=== PATIENT | female | born 1980 | race Caucasian/White ===

== ENCOUNTER 2022-07-27 05:51 | Inpatient (IN) ==
[2022-07-27] MEDS ORDERED: Buffered Lidocaine 1% SYRIN 1 ml INTRADERM ONE (06:00)
[2022-07-27] MEDS ORDERED: Sodium Citrate/Citric Acid LIQ 15 ML UDC PO ONE (06:00)
[2022-07-27] MEDS ORDERED: ceFOXitin 2 GM IVPREMIX 2 GM/50 ML BAG IVPB ONE (06:00)
[2022-07-27] MEDS ORDERED: Lactated Ringers 1000 ml BAG 1,000 ML IV ONE ×2 (06:00→18:36)
[2022-07-27 06:52] LABS: ABS Basophils 0.1 10^3/uL (0.0-0.1); ABS Lymphocytes 1.7 10^3/uL (1.0-4.8); ABS Monocytes 0.6 10^3/uL (0.0-0.9); ABS Neutrophils 5.5 10^3/uL (1.5-7.6); ABS Nucleated RBC 0.01 10^3/ul; Eosinophil % 0.1 %; Hematocrit 28.8 % (35-45); Hemoglobin 9.1 g/dL (11.5-14.3); Lymphocyte % 21.8 %; Mean Corpuscular Hemoglobin 22.4 pg (27-33); Mean Corpuscular Hgb Conc 31.4 g/dL (31-36); Mean Corpuscular Volume 71.4 fL (80-97); Mean Platelet Volume 9.8 fL (7.5-11.2); Nucleated Red Blood Cells % 0.2 /100 WBC (0.0-0.4); Platelet Count 283 10^3/uL (150-450); Red Blood Count 4.04 10^6/uL (3.63-4.92); Red Cell Distribution Width 21.4 % (12-17); White Blood Count 7.9 10^3/uL (3.8-11.8)
[2022-07-27] MEDS ORDERED: Lactated Ringers 1000 ml BAG 1,000 ML IV SCH ×2 (07:00→10:00)
[2022-07-27] MEDS ORDERED: Phenylephrine 40 mcg/mL 10mL (400mcg) SYRINGE ONE (07:01)
[2022-07-27] MEDS ORDERED: Dexamethasone IV 4 MG/ML VIAL 1 ml VIAL ONE (07:03)
[2022-07-27] MEDS ORDERED: Tranexamic Acid 1,000 MG in NS 0.9% 50 ML IV ONE (07:35)
[2022-07-27] MEDS ORDERED: Acetaminophen IV 1 GM/100ML 1,000 MG/100 ML BAG IV ONE (08:25)
[2022-07-27] MEDS ORDERED: Oxytocin 10 UNITS/ML 1 ML VIAL ONE (08:26)
[2022-07-27 08:34] LABS: Urine Appearance Cloudy; Urine Bilirubin Negative (Negative); Urine Blood 1+ (Negative); Urine Color Yellow; Urine Glucose Negative (Negative); Urine Ketones Negative (Negative); Urine Nitrite Negative (Negative); Urine Protein 1+(30 mg/dL) (Negative); Urine Specific Gravity 1.014 (1.002-1.030); Urine Urobilinogen Negative (Negative)
[2022-07-27 08:48] LABS: Urine Bacteria Absent (Absent); Urine Red Blood Cell 3+(>10/hpf) (Absent); Urine Renal Epithelial Cells Present (Absent); Urine Squamous Epithelial Cell Present (Absent); Urine White Blood Cell 2+(11-20/hpf) (Absent)
[2022-07-27 08:56] LABS: Urine Benzodiazepine Screen None Detected (None Detect); Urine Cannabinoids Screen None Detected (None Detect); Urine Opiates Screen None Detected (None Detect)
[2022-07-27] MEDS ORDERED: Witch Hazel PAD JAR TOPICAL PRN (09:13)
[2022-07-27] MEDS ORDERED: Glycerin ADULT 2.4 gm SUPP PR PRN (09:13)
[2022-07-27] MEDS ORDERED: Dibucaine 1% OINT 28.35 GM TUBE PR PRN (09:13)
[2022-07-27] MEDS ORDERED: HYDROmorphone 0.5 MG/0.5 ML SYRINGE IV SLOW PU PRN (09:20)
[2022-07-27] MEDS ORDERED: Acetaminophen IV 1 GM/100ML 1,000 MG/100 ML BAG IV PRN ×2 (09:37→17:00)
[2022-07-27] MEDS ORDERED: Metoclopramide 5 MG/ML VIAL (10 mg) IV PRN (09:37)
[2022-07-27] MEDS ORDERED: Naloxone 0.4 mg VIAL 0.4 mg/ml 1 ml VIAL IV PUSH PRN (09:37)
[2022-07-27] MEDS: Oxytocin in LR 20,000 MILLI.UNIT/1,000 ML BAG IV SCH ×2 (12:16→17:27)
[2022-07-27] MEDS ORDERED: Buprenorp/Nalox 8-2 MG FILM SL SCH (19:00)
[2022-07-27 19:48] LABS: Hematocrit 24.7 % (35-45); Hemoglobin 7.8 g/dL (11.5-14.3); Mean Corpuscular Hemoglobin 22.3 pg (27-33); Mean Corpuscular Hgb Conc 31.4 g/dL (31-36); Mean Platelet Volume 9.5 fL (7.5-11.2); Platelet Count 235 10^3/uL (150-450); Red Blood Count 3.49 10^6/uL (3.63-4.92); Red Cell Distribution Width 20.9 % (12-17); White Blood Count 14.4 10^3/uL (3.8-11.8)
[2022-07-27] MEDS: Buprenorp/Nalox 4-1 MG FILM SL SCH (21:19)
[2022-07-27] MEDS: Buprenorp/Nalox 8-2 MG FILM SL SCH (21:21)
[2022-07-28] MEDS: Buprenorp/Nalox 8-2 MG FILM SL SCH ×2 (10:47→22:03)
[2022-07-28] MEDS: CMCS: Lisdexamfetamine 10 mg CAP(NF) PO SCH (11:11)
[2022-07-28] MEDS: Buprenorp/Nalox 4-1 MG FILM SL SCH (22:03)
[2022-07-29] MEDS: Buprenorp/Nalox 8-2 MG FILM SL SCH ×2 (08:25→20:08)
[2022-07-29] MEDS: CMCS: Lisdexamfetamine 10 mg CAP(NF) PO SCH (08:34)
[2022-07-29] MEDS: Buprenorp/Nalox 4-1 MG FILM SL SCH (20:09)
[2022-07-30] MEDS: Buprenorp/Nalox 8-2 MG FILM SL SCH (09:11)
[2022-07-30] MEDS: CMCS: Lisdexamfetamine 10 mg CAP(NF) PO SCH (09:12)
[2022-07-30 15:10] VITALS: BP 147/82
== END 2022-07-30 14:30 | disposition home or self-care (01) | DRG 540 ==
LOC: MCHOB 05:51
PROVIDERS: ADMIT Obstetrics & Gynecology; ATTEND Obstetrics & Gynecology